=== PATIENT | female | born 1985 | race Caucasian/White ===

== ENCOUNTER 2016-11-03 09:16 | Emergency (ER) | payer OTHER ==
[~2016-11-03] VITALS: Ht 167.6 cm; Wt 67.0 kg
[2016-11-03] MEDS ORDERED: LEVO-T75 MCG PO (09:40)
[2016-11-03] MEDS ORDERED: CONCERTA27 MG PO (09:40)
[2016-11-03 10:45] LABS: HEMATOCRIT 39.3 % (36.0-46.0); MCH 29.3 PG (29.0-34.0); MCHC 33.6 G/DL (30.0-36.0); MCV 87.1 FL (83-99); MEAN PLAT.VOLUME 8.7 uM^3 (9.5-12.4); PLATELET COUNT 315 K/uL (156-360); RBC DIS.WIDTH-CV 13.4 % (11.8-14.6); RBC DIS.WIDTH-SD 43.1 % (39-53); RED BLOOD COUNT 4.51 M/uL (3.80-5.20); WHITE BLOOD COUNT 10.3 K/uL (4.1-10.2)
[2016-11-03 10:53] LABS: CHLORIDE 109 mEq/L (99-109); POTASSIUM 4.3 mEq/L (3.7-5.4); SODIUM 140 mEq/L (136-147)
[2016-11-03 10:56] LABS: GLUCOSE 106 mg/dL (70-99)
[2016-11-03 10:57] LABS: ANION GAP 9 MEQ/L (2-14)
[2016-11-03 10:58] LABS: TOTAL BILIRUBIN 0.4 mg/dL (0.0-1.0)
[2016-11-03 10:59] LABS: ALKALINE PHOSPHATASE 47 IU/L (3-129); GFR ESTIMATE (CALCULATED) > 59 mL/min/
[2016-11-03 11:00] LABS: UREA NITROGEN (BUN) 14 mg/dL (9-23)
[2016-11-03 11:08] LABS: QUANTITATIVE HCG < 4.0 MIU/ML
[2016-11-03 12:20] LABS: ADD MIUA? NO; BILIRUBIN NEGATIVE; BLOOD NEGATIVE; COLOR YELLOW ((YELLOW)); GLUCOSE (STRIP) NEGATIVE; KETONES NEGATIVE; LEUKOCYTES NEGATIVE; NITRITE NEGATIVE; PROTEIN (STRIP) NEGATIVE; SPECIFIC GRAVITY 1.017 (1.000-1.030); UROBILINOGEN 0.2 MG/DL (0.2-1.0)
[2016-11-03] MEDS ORDERED: ZOFRAN ODT4 MG PO (12:43)
[2016-11-03 13:05] VITALS: BP 101/63
== END 2016-11-03 13:07 | disposition home or self-care (01) ==
LOC: EME 09:16
PROVIDERS: Nurse Practitioner Family
DX: S06.9X9A Unspecified intracranial injury with loss of consciousness of unspecified duration, initial encounter (principal); W19.XXXA Unspecified fall, initial encounter; Y93.E8 Activity, other personal hygiene; F17.200 Nicotine dependence, unspecified, uncomplicated; Z87.820 Personal history of traumatic brain injury; R42 Dizziness and giddiness; R11.0 Nausea
CPT/HCPCS: 70450; 70544; 70551; 80053; 81003; 84702; 85027; 93005; 99281; 99285

== ENCOUNTER → 2017-04-18 | Outpatient (CLI) | payer OTHER ==
[~2017-04-18] VITALS: Ht 165.1 cm; Wt 61.2 kg
[~2017-04-18] MED LIST: ANUSOL HC,ANUCO25 MG PR; CONCERTA27 MG PO; LEVO-T75 MCG PO; LEVOTHYROXINE75 MCG PO; MULTIVITAMIN1 EAC2 PO; PROAIR HFA8.5 GM IH; VYVANSE40 MG PO; ZOFRAN ODT4 MG PO
== END | disposition home or self-care (01) ==
LOC: AMB 13:30
PROC: 0DBE8ZZ Excision of Large Intestine, Via Natural or Artificial Opening Endoscopic (ICD-10-PCS; principal; 2017-04-18)
DX: K92.1 Melena (principal); K64.8 Other hemorrhoids; K64.4 Residual hemorrhoidal skin tags; E03.9 Hypothyroidism, unspecified; F17.210 Nicotine dependence, cigarettes, uncomplicated; F41.9 Anxiety disorder, unspecified; F90.9 Attention-deficit hyperactivity disorder, unspecified type; Z90.49 Acquired absence of other specified parts of digestive tract
CPT/HCPCS: 88305; 88313; J2250

== ENCOUNTER 2017-06-06 09:47 | Day surgery (SDC) | payer OTHER ==
[~2017-06-06] VITALS: Ht 165.1 cm; Wt 60.7 kg
[2017-06-06 10:29] VITALS: BP 100/66
[2017-06-06] MEDS ORDERED: COLACE100 MG PO (13:02)
[2017-06-06] MEDS ORDERED: ROXICODONE5 MG PO (13:02)
[2017-06-06] MEDS ORDERED: ANECREAM30 GM TP (13:02)
[2017-06-06 14:10] VITALS: BP 112/62
[2017-06-06 15:10] VITALS: BP 102/62
== END 2017-06-06 15:30 | disposition home or self-care (01) ==
LOC: SDC 09:47
DX: K64.8 Other hemorrhoids (principal); K64.4 Residual hemorrhoidal skin tags; F41.9 Anxiety disorder, unspecified; E03.9 Hypothyroidism, unspecified; K62.5 Hemorrhage of anus and rectum; F17.200 Nicotine dependence, unspecified, uncomplicated
CPT/HCPCS: 88304; J1100; J1170; J2175; J2250; J2405; J3010; S0074